=== PATIENT | female | born 1935 | race Caucasian/White ===

== ENCOUNTER 2016-08-28 07:51 | Observation (INO) | payer MEDICARE, OTHER ==
--- NOTE | 2016-08-27 19:08 | HP ---
DATE OF ADMISSION: 08/28/2016 ADMITTING DIAGNOSES: 1. Coronary artery disease, history of positive Lexiscan. 2. Acute myocardial infarction. 3. Right breast cancer for preoperative clearance. 4. Hypertension. 5. Hypothyroidism. 6. Hypercholesterolemia. 7. Osteoarthritis. HISTORY OF PRESENT ILLNESS: The patient is a 80-year-old male who will be admitted to [facility] for cardiac catheterization to be done by Dr. Tye Mendoza secondary Lexiscan showing latera l ischemia. Patient had a full cardiac workup done by him and admitted for further workup. Patient is complaining of right breast pain and biopsy done which shows positive for malignancy. The patie nt was seen by the surgeon for preop workup which showed some coronary artery disease. The patient informed of diagnosis and prognosis. We will follow up. 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 HABITS: Not a smoker, drinker or drug abuser. FAMILY HISTORY: Positive for malignancy, positive for cardiovascular disease, diabetes mellitus and hypertension. PAST MEDICAL HISTORY: The patient has history of diabetes mellitus, hypertension, hyponatremia, hyp ochloremia, osteoarthritis, osteoporosis, hypothyroidism, hypertension, diabetes mellitus with perip heral neuropathy, major depression, vertigo and then severe osteoarthritis of the knees with multipl e injections in the knees and history of right carpal syndrome. History of recurrent urinary tract i nfection with hematuria. Obesity. PAST SURGICAL HISTORY: None. SOCIAL HISTORY: The patient has no kids. MEDICATIONS: Currently the patient is taking. 1. Cozaar 20 mg once a day. 2. Neurontin 100 mg 3 times a day. 3. Januvia 100 mg once a day. 4. Cozaar 100 mg once a day. 5. Cardura 4 mg once a day. 6. Levoxyl 100 mcg once a day p.o. 7. Nitrostat 0.4 mg sublingual. 8. Inderal 10 mg 3 times a day. ALLERGIES: PENICILLIN. REVIEW OF SYSTEMS: GASTROINTESTINAL: No history of upper or lower GI bleeding, but peptic ulcer disease and vomiting. She preferred to use no Plavix or aspirin. RESPIRATORY: No shortness of breath or cough. No pulmonary tuberculosis, hemoptysis. CARDIOVASCULAR: Hypertension, positive cardiac workup. Old EKG done on her shows nonspecific ST-T wave abnormality with left ventricular hypertrophy. No evidence of heart disease in the past. GENITOURINARY: No dysuria, hematuria, groin pain, nephrolithiasis. No retention of urine. Pap sme ar refused by the system administrator secondary to age. Mammogram right ductal carcinoma right breast biop sy done pending surgery. MUSCULOSKELETAL: Advanced osteoporosis and osteoarthritis. He was on vitamin D in the past. Proli a injection every 6 months. No fracture of bones but severe arthritis of the knees. HEMATOLOGY: No leukemia or lymphoma. No anemia. SKIN: No urticaria, dermatitis. NEUROLOGIC: No seizure or convulsion. No TIA or CVA. PHYSICAL EXAMINATION: GENERAL: The patient is awake, alert, looks stated age, not in pain or shortness of breath. VITAL SIGNS: On admission show blood pressure was 130/80, temperature 97.8, pulse 81, and she weigh s 159 pounds. She is 58 inches high. HEAD: Normocephalic, atraumatic. Pupils equal, react to light and accommodation. Sclerae anicteri c. Extraocular movements normal limits. Throat clear. No sign of acute infection seen. Facial sk in and scalp within normal limits. Pale skin. NECK: Supple, trachea central, no thyroid enlargement, no cervical lymphadenopathy. Carotid pulse normal. No jugular venous distention. CHEST: Normal contour with normal inspiration and expiration. LUNGS: Clear to auscultation and percussion. HEART: Regular sinus rhythm with systolic murmur on right side. Mild cardiomegaly. ABDOMEN: Umbilicus central. No organomegaly. No tenderness or rebound tenderness. Bowel sounds p ositive. GENITALIA: External genitalia within normal limits. RECTAL: The patient refused. BREASTS: Normally shaped, right side mass in the right upper quadrant. EXTREMITIES: Upper and lower extremities normally shaped at this moment. No clubbing, no cyanosis or deformity. Good peripheral pulse, no edema. Arthritis in the knees with mild difficulty in walk ing. NEUROLOGICAL: Cranial nerves II through XII and peripheral nerves, sensory and motor grossly within normal limits. Gait normal. Deep tendon reflexes 4+. There is mild hypoesthesia in the legs. IMPRESSION: 1. Coronary artery disease for cardiac catheterization by Dr. Mendoza. 2. Right breast invasive ductal carcinoma pending surgery after cardiac clearance. 3. Diabetes mellitus type 2, controlled. 4. Hypertension. 5. Hyperlipidemia. 6. Osteoarthritis. 7. Hypothyroidism. PLAN: Patient admitted to the hospital, medically cleared for procedure. We will follow up again. PROGNOSIS: Fair to guarded. Dictated By: ZEB SALGUERO/TAHIR Conf#: [id number] DID#: [id number]
[2016-08-28] VITALS (36 sets, daily range): BP systolic 87–161; BP diastolic 40–67; PULSE 64–84; RESP 10–25; Ht 139.7 cm; Wt 71.6 kg
[~2016-08-28] VITALS: Ht 139.7 cm; Wt 71.6 kg
[2016-08-28 09:25] LABS: ADD SCAN DIFF NO
[2016-08-28 09:28] LABS: BASOPHIL # 0.1 10^3/ul (0.0-0.1); BASOPHILS % 0.6 % (0.0-2.0); EOSINOPHILS # 0.2 10^3/ul (0.0-0.5); EOSINOPHILS % 1.5 % (0.0-7.0); HEMATOCRIT 38.4 % (37.0-47.0); HEMOGLOBIN 12.4 g/dl (12.0-16.0); LYMPHOCYTES # 2.2 10^3/ul (0.8-2.9); LYMPHOCYTES % 20.3 % (15.0-51.0); MEAN CORPUSCULAR HEMOGLOBIN 26.6 pg (29.0-33.0); MEAN CORPUSCULAR HGB CONC 32.3 g/dl (32.0-37.0); MEAN CORPUSCULAR VOLUME 82.4 fl (82.0-101.0); MEAN PLATELET VOLUME 11.2 fl (7.4-10.4); MONOCYTE # 0.6 10^3/ul (0.3-0.9); MONOCYTES % 5.2 % (0.0-11.0); NEUTROPHIL # 7.8 10^3/ul (1.6-7.5); NEUTROPHILS % 71.8 % (39.0-77.0); PLATELET COUNT 214 10^3/UL (140-415); RED BLOOD COUNT 4.66 10^6/ul (4.20-5.40); RED CELL DISTRIBUTION WIDTH 15.1 % (11.5-14.5); WHITE BLOOD COUNT 10.8 10^3/ul (4.8-10.8)
[2016-08-28] MEDS ORDERED: LOSA1TAB20 PO (09:34)
[2016-08-28] MEDS ORDERED: SIMV20TA6 PO (09:34)
[2016-08-28] MEDS ORDERED: SITA100T8 PO (09:34)
[2016-08-28] MEDS ORDERED: LEVO100T87 PO (09:34)
[2016-08-28] MEDS ORDERED: DOXA4TAB3 PO (09:34)
[2016-08-28] MEDS ORDERED: GABA300S PO (09:34)
[2016-08-28] MEDS ORDERED: CHOL100062 PO (09:34)
--- NOTE | 2016-08-28 09:39 | RADRPT ---
PROCEDURE: XR Chest. CLINICAL INDICATION: Chest pain , preoperative TECHNIQUE: Single frontal view of the chest was obtained COMPARISON: None FINDINGS: The heart is enlarged. The thoracic aorta is calcified. The lungs are clear. There is no pleural effusion or pneumothorax. RPTAT: AA IMPRESSION: Mild cardiomegaly. Calcified aorta consistent with atherosclerotic disease. .Niall Malcolm MD, MD Date Time Electronically viewed and signed by .Niall Malcolm MD, on 08/28/2016 09:39 .S/
[2016-08-28 09:45] LABS: INR 1.03; PROTIME 13.5 Sec (12.2-14.2); PT RATIO 1.1
[2016-08-28 09:46] LABS: CHOL/HDL RATIO 4.4 RATIO; PARTIAL THROMBOPLASTIN TIME 27.2 Sec (25.0-35.0)
[2016-08-28 09:57] LABS: CALCIUM 9.3 mg/dl (8.4-10.2); CREATININE 1.21 mg/dl (0.44-1.00); POTASSIUM 4.7 mmol/L (3.5-5.1)
[2016-08-28] MEDS ORDERED: MIDAZOLAM 1 MG/ML 2 ML INJ ONE ×2 (13:19→13:22)
[2016-08-28] MEDS ORDERED: LIDOCAINE 1% (MDV) 20 ML INJ ONE (13:19)
[2016-08-28] MEDS ORDERED: IODIXANOL LOCM 100 ML BTL ONE (13:19)
[2016-08-28] MEDS ORDERED: FENTAnyl 50 MCG/ML VIAL ONE ×2 (13:19→13:22)
[2016-08-28] MEDS ORDERED: HEPARIN 1000 UNITS/ML 10 ML INJ ONE (13:29)
[2016-08-28] MEDS ORDERED: VERAPAMIL 5 MG INJ ONE (13:29)
[2016-08-28] MEDS ORDERED: NITROGLYCERIN (IC) 100 MCG/ML INJ ONE ×2 (13:29→15:46)
--- NOTE | 2016-08-28 14:28 | RADRPT ---
Vent Rate: 74 bpm RR Interval: 0 msec [place] Interval: 172 msec QRS Duration: 86 msec QT Interval: 410 msec QTC Interval: 455 msec P-R-T [place]: 34 - -16 - 113 degrees Sinus rhythm with premature atrial complexes with aberrant conduction Voltage criteria for left ventricular hypertrophy T wave abnormality, consider lateral ischemia Abnormal ECG Electronically Signed By: Vic Borges [id number]
[2016-08-28] MEDS ORDERED: ASPIRIN 325 MG TAB ONE (16:13)
[2016-08-28] MEDS ORDERED: CLOPIDOGREL 300 MG TAB ONE (16:14)
[2016-08-28] MEDS ORDERED: SOD CHLORIDE 0.9% 1,000 ML IV SCH (16:16)
[2016-08-28] MEDS ORDERED: ONDANSETRON 4 MG INJ IV PRN (16:30)
[2016-08-28] MEDS ORDERED: ZOLPIDEM 5 MG TAB PO PRN (16:30)
[2016-08-28] MEDS ORDERED: AL HYDROX/MG HYDROX/SIMETH 30 ML CUP PO PRN (16:30)
[2016-08-28] MEDS ORDERED: ACETAMINOPHEN 325 MG TAB PO PRN (16:30)
[2016-08-28] MEDS ORDERED: OXYCODONE/ACETAMINOPHEN (5/325) TAB PO PRN (16:30)
--- NOTE | 2016-08-28 19:19 | RADRPT ---
Vent Rate: 66 bpm RR Interval: 0 msec [place] Interval: 180 msec QRS Duration: 96 msec QT Interval: 464 msec QTC Interval: 486 msec P-R-T [place]: 45 - -43 - 99 degrees Normal sinus rhythm Left axis deviation Left ventricular hypertrophy with repolarization abnormality Abnormal ECG Electronically Signed By: Vic Borges [id number]
[2016-08-28] MEDS ORDERED: GLUCAGON 1 MG INJ IM PRN (21:30)
[2016-08-28] MEDS ORDERED: GLUCOSE GEL 15 GRAM TUBE BUCCAL PRN (21:30)
[2016-08-28] MEDS ORDERED: [UNRECOGNIZED DRUG - REMARK] XX ONE (21:30)
[2016-08-28] MEDS ORDERED: DEXTROSE 50% 50 ML SYRINGE IV PRN ×2 (21:30)
[2016-08-28] MEDS ORDERED: GLUCOSE GEL 15 GRAM TUBE PO PRN ×2 (21:30)
[2016-08-28] MEDS ORDERED: Discontinue Glyburide, Glipizide, and/or Glimepiride prior to starting Insulin XX ONE (21:30)
[2016-08-28] MEDS ORDERED: ATORVASTATIN 10 MG TAB PO SCH (22:15)
[2016-08-28] MEDS ORDERED: DOXAZOSIN 4 MG TAB PO SCH (22:30)
[2016-08-28] MEDS ORDERED: GABAPENTIN (50 MG/ML PO SYG) PO SCH (23:00)
[2016-08-29] VITALS (10 sets, daily range): BP systolic 114–143; BP diastolic 56–66; PULSE 71–108; RESP 18–20
[2016-08-29] MEDS ORDERED: ACCU-CHEK XX SCH (02:00)
[2016-08-29] MEDS ORDERED: LEVOTHYROXINE 100 MCG TAB PO SCH (06:00)
[2016-08-29 08:03] LABS: ADD SCAN DIFF NO
[2016-08-29 08:10] LABS: BASOPHIL # 0.1 10^3/ul (0.0-0.1); BASOPHILS % 0.5 % (0.0-2.0); EOSINOPHILS # 0.1 10^3/ul (0.0-0.5); EOSINOPHILS % 0.6 % (0.0-7.0); HEMATOCRIT 34.8 % (37.0-47.0); HEMOGLOBIN 11.1 g/dl (12.0-16.0); LYMPHOCYTES # 1.7 10^3/ul (0.8-2.9); LYMPHOCYTES % 13.4 % (15.0-51.0); MEAN CORPUSCULAR HEMOGLOBIN 26.4 pg (29.0-33.0); MEAN CORPUSCULAR HGB CONC 31.9 g/dl (32.0-37.0); MEAN CORPUSCULAR VOLUME 82.9 fl (82.0-101.0); MEAN PLATELET VOLUME 10.6 fl (7.4-10.4); MONOCYTE # 0.7 10^3/ul (0.3-0.9); MONOCYTES % 5.7 % (0.0-11.0); NEUTROPHIL # 9.9 10^3/ul (1.6-7.5); NEUTROPHILS % 79.3 % (39.0-77.0); PLATELET COUNT 209 10^3/UL (140-415); RED CELL DISTRIBUTION WIDTH 15.2 % (11.5-14.5); WHITE BLOOD COUNT 12.5 10^3/ul (4.8-10.8)
[2016-08-29 08:43] LABS: CALCIUM 9.1 mg/dl (8.4-10.2); CREATININE 1.22 mg/dl (0.44-1.00); POTASSIUM 4.4 mmol/L (3.5-5.1)
[2016-08-29] MEDS: INSULIN ASPART [NOVOLOG] 3 ML PEN SC SCH ×3 (08:47→18:05)
[2016-08-29] MEDS ORDERED: HYDROCHLOROTHIAZIDE 25 MG TAB PO SCH (09:00)
[2016-08-29] MEDS ORDERED: CLOPIDOGREL 75 MG TAB PO SCH (09:00)
[2016-08-29] MEDS ORDERED: LOSARTAN 50 MG TAB PO SCH (09:00)
[2016-08-29] MEDS ORDERED: ASPIRIN (EC) 325 MG TAB PO SCH (09:00)
[2016-08-29] MEDS ORDERED: CHOLECALCIFEROL 1,000 UNIT TAB PO SCH (09:00)
[2016-08-29] MEDS ORDERED: LINAGLIPTIN 5 MG TABLET PO SCH (09:00)
--- NOTE | 2016-08-29 15:18 | CONS ---
Date/Time of Note Date/Time of Note DATE: 08/29/16 TIME: 15:15 Assessment/Plan Assessment/Plan Additional Assessment/Plan Coronary artery disease, hs/p PTCA with stenting. Hypertension. Hypothyroidism. Dyslipidemia Diabetes Osteoarthritis. Breast cancer Post Stenting hemodynamically stable Started on Metoprolol Continue Losartan Continue ASA and Plavix Continue Lipitor continue Insulin Home Tomorrow if not hypotensive on metoprolol Consultation Date/Type/Reason Admit Date/Time Aug 28, 2016 at 20:00 Social History Smoking Status: Former smoker Exam/Review of Systems Vital Signs Vitals Vital Signs Date Time Temp Pulse Resp B/P Pulse Ox O2 Delivery O2 Flow Rate FiO2 08/29/16 12:21 98.0 77 18 114/56 98 08/28/16 19:39 Room Air Exam Constitutional: alert, oriented Psych: no complaints Head: atraumatic, normocephalic Neck: non-tender, supple Respiratory: clear to auscultation Cardiovascular: regular rate and rhythm Gastrointestinal: nl liver, spleen, non-tender, soft Extremities: normal pulses Results Result Diagram: 08/29/16 0730 08/29/16 0730 Results 24 hrs Laboratory Tests Test 08/28/16 21:23 08/29/16 07:30 08/29/16 08:14 08/29/16 12:22 Bedside Glucose 111 181 133 White Blood Count 12.5 H Red Blood Count 4.20 Hemoglobin 11.1 L Hematocrit 34.8 L Mean Corpuscular Volume 82.9 Mean Corpuscular Hemoglobin 26.4 L Mean Corpuscular Hemoglobin Concent 31.9 L Red Cell Distribution Width 15.2 H Platelet Count 209 Mean Platelet Volume 10.6 H Neutrophils % 79.3 H Lymphocytes % 13.4 L Monocytes % 5.7 Eosinophils % 0.6 Basophils % 0.5 Nucleated Red Blood Cells % 0.0 Neutrophils # 9.9 H Lymphocytes # 1.7 Monocytes # 0.7 Eosinophils # 0.1 Basophils # 0.1 Nucleated Red Blood Cells # 0.0 Sodium Level 136 Potassium Level 4.4 Chloride Level 99 Carbon Dioxide Level 31 Anion Gap 10 Blood Urea Nitrogen 32 H Creatinine 1.22 H Glucose Level 126 Calcium Level 9.1 Triglycerides Level 207 H Cholesterol Level 165 LDL Cholesterol, Calculated 91 HDL Cholesterol 33 Cholesterol/HDL Ratio 5.0 Medications Medications Current Medications Aspirin (Ecotrin) 325 mg DAILY PO Last administered on 08/29/16 08:47; Admin Dose 325 MG; Start 08/29/16 at 09:00 Clopidogrel Bisulfate (plaVIX) 75 mg DAILY PO Last administered on 08/29/16 08 :47; Admin Dose 75 MG; Start 08/29/16 at 09:00 Acetaminophen (Tylenol Tab) 650 mg Q4H PRN PO NON-CARDIAC PAIN LEVEL 1-3; Start 08/28/16 at 16:30 Oxycodone/ Acetaminophen (Percocet (5/ 325)) 1 tab Q4H PRN PO REPORTED NON- CARDIAC PAIN 4-7; Start 08/28/16 at 16:30 Al Hydrox/Mg Hydrox/Simethicone (Mag-Al Plus) 30 ml Q4H PRN PO GASTROINTESTINAL UPSET; Start 08/28/16 at 16:30 Ondansetron HCl (Zofran Inj) 4 mg Q4H PRN IV NAUSEA AND/OR VOMITING; Start at 16:30 Diagnostic Test (Pha) (Accu-Chek) 1 ea 02 XX ; Start 08/29/16 at 02:00 Miscellaneous Information 1 ea NOTE XX ; Start 08/28/16 at 21:30 Glucose (Glutose) 15 gm Q15M PRN PO DECREASED GLUCOSE; Start 08/28/16 at 21:30 Glucose (Glutose) 22.5 gm Q15M PRN PO DECREASED GLUCOSE; Start 08/28/16 at 21: 30 Dextrose (D50w Syringe) 25 ml Q15M PRN IV DECREASED GLUCOSE; Start 08/28/16 at 21:30 Dextrose (D50w Syringe) 50 ml Q15M PRN IV DECREASED GLUCOSE; Start 08/28/16 at 21:30 Glucagon (Glucagen) 1 mg Q15M PRN IM DECREASED GLUCOSE; Start 08/28/16 at 21:30 Glucose (Glutose) 15 gm Q15M PRN BUCCAL DECREASED GLUCOSE; Start 08/28/16 at 21 :30 Cholecalciferol (Vitamin D) 3,000 unit DAILY PO Last administered on 08/29/16 08:48; Admin Dose 3,000 UNIT; Start 08/29/16 at 09:00 Doxazosin Mesylate (Cardura) 4 mg HS PO ; Start 08/28/16 at 22:30 Levothyroxine Sodium (Synthroid) 100 mcg DAILY@06 PO Last administered on 05:48; Admin Dose 100 MCG; Start 08/29/16 at 06:00 Atorvastatin Calcium (Lipitor) 10 mg DAILY@21 PO ; Start 08/28/16 at 22:15 Linagliptin (Tradjenta) 5 mg DAILY PO Last administered on 08/29/16 08:48; Admin Dose 5 MG; Start 08/29/16 at 09:00 Losartan Potassium (Cozaar) 100 mg DAILY PO Last administered on 08/29/16 08: 49; Admin Dose 100 MG; Start 08/29/16 at 09:00 Hydrochlorothiazide (Hydrochlorothiazide) 25 mg DAILY PO Last administered on 08:48; Admin Dose 25 MG; Start 08/29/16 at 09:00 Gabapentin (Neurontin Liquid) 300 mg HS PO ; Start 08/29/16 at 21:00 SILAS ANTOIEN M.D. Aug 29, 2016 15:18
[2016-08-29] MEDS ORDERED: CLOP75TA27 PO ×2 (18:40→18:41)
--- NOTE | 2016-08-29 19:13 | DS ---
DATE OF ADMISSION: 08/28/2016 DATE OF DISCHARGE: 08/29/2016 ADMITTING DIAGNOSES: 1. Coronary artery disease with positive cardiac workup with ischemic cardiomyopathy. 2. Diabetes mellitus type 2. 3. Invasive ductal carcinoma of the right breast, for surgical management in a few weeks, for cardi ac clearance. 4. Anemia. 5. Hypertension. 6. Hypothyroidism. 7. Hypercholesterolemia. DISCHARGE DIAGNOSES: 1. Coronary artery disease with positive cardiac workup with ischemic cardiomyopathy. 2. Diabetes mellitus type 2. 3. Invasive ductal carcinoma of the right breast, for surgical management in a few weeks, for cardi ac clearance. 4. Anemia. 5. Hypertension. 6. Hypothyroidism. 7. Hypercholesterolemia. PRINCIPAL PROCEDURE: Cardiac catheterization with stent placement in the left coronary artery with right coronary was blocked completely, circumflex intact, done by Dr. Mendoza, see the operative rep ort. SUMMARY: The patient is a 80-year-old female admitted for cardiac catheterization after Lexiscan allium study done in Dr. Mendoza office was procedure pre-workup. The patient's angiogram positive for left coronary artery stenotic with complete occlusion of right coronary artery. Patient ____ an d EKG was unremarkable. The patient tolerated the cardiac catheterization and then with no chest pa in, her EKG shows normal sinus rhythm with left axis deviation, and left ventricular hypertrophy. The patient had medications, currently on: 1. Neurontin 300 mg 3 times a day. 2. Aspirin 325 mg. 3. Plavix 75 mg once a day. 4. Vitamin D 3000 units. 5. Tradjenta 5 mg daily. 6. Cozaar 100 mg daily. 7. Hydrochlorothiazide 25 mg daily. 8. NovoLog insulin b.i.d. 9. Levoxyl 100 mcg once a day. 10. Accu-Chek twice a day. 11. Add Cardura 4 mg at bedtime. 12. And Lipitor 10 mg once a day. Her WBC on admission shows WBC 10.8, hemoglobin 12.4, platelet count 214, neutrophils 7.8 unremarkab le. Today, chemistry showed sodium 136, potassium 4.4, chloride 99, carbon dioxide 31, BUN 32, was 28 yesterday, and creatinine 1.2, stable. ____ was ____ and went to 0.7. Glucose was normal 111, a nd today is 181, and went down to 133. Chest x-ray showed cardiomegaly and no acute changes. PHYSICAL EXAMINATION: GENERAL: The patient is awake, calm, looks stated age. VITAL SIGNS: On admission shows pulse 76, respirations 20. Blood pressure 114/56, O2 saturation 98 % on room air, temperature 98.0. HEENT: Head normocephalic, atraumatic. Pupils equal, react to light and accommodation. Sclerae an icteric. Extraocular movements normal limits. Throat clear. No sign of acute infection seen. Fac ial skin and scalp within normal limits. NECK: Supple. Trachea central. No thyroid enlargement, no cervical lymphadenopathy. Carotid puls e normal. No jugular venous distention. CHEST: Normal contour. Normal inspiration and expiration. Lungs clear to auscultation and percuss ion. HEART: Regular sinus rhythm. No rub or murmur. PMI localized in midclavicular line, fourth interc ostal space. ABDOMEN: Umbilicus central. No organomegaly. No tenderness or rebound tenderness. Bowel sounds p ositive. GENITOURINARY: External genitalia within normal limit. BREASTS: Examination of right breast with right upper quadrant 1 inch mass. It is soft, nontender, status post biopsy a month ago. UPPER AND LOWER EXTREMITIES: No Upper and lower extremities normally shaped at this moment. No clu bbing, cyanosis, or deformity. Osteoarthritis of the knees with difficulty walking with no weakness . NEUROLOGIC: Cranial nerves II through XII and peripheral nerves, sensory and motor grossly within n ormal limits. Gait normal. Deep tendon reflexes 4+. PLAN: The patient is going home. Will continue her medications of: 1. Neurontin 300 mg at bedtime. 2. Aspirin 325 mg once a day. 3. Plavix 75 mg once a day. 4. Vitamin D 3000 units daily. 5. Tradjenta 5 mg once a day. 6. Cozaar 100 mg daily. 7. Hydrochlorothiazide 25 mg once a day. 8. Insulin sliding scale twice a day. 9. Levoxyl 100 mcg once a day. 10. Cardura 4 mg at bedtime. 11. Lipitor 10 mg once a day. 12. Tylenol 650 q.4 hours p.r.n. mild pain. SKIN: Intact. PROGNOSIS: Fair. CODE STATUS: FULL CODE. Will follow up. Discussed her case with Dr. Mendoza and with ____, and [facility]. CONDITION UPON DISCHARGE: Improved. Dictated By: ZBE SALGUERO/TAHIR Conf#: [id number] DID#: [id number]
--- NOTE | 2016-08-29 20:41 | PDOCDIS ---
Discharge Instructions CONDITION Patient Condition: Fair HOME CARE INSTRUCTIONS: Diet Instructions: Low Fat /Cholesterol ACTIVITY: Activity Restrictions: No Restrictions ZEB WALKER MD Aug 29, 2016 15:57
[2016-08-29] MEDS ORDERED: GABAPENTIN (50 MG/ML PO SYG) PO SCH (21:00)
--- NOTE | 2016-08-30 19:07 | CARRPT ---
DATE OF PROCEDURE: 08/28/2016 TYPE OF PROCEDURE: 1. Left heart catheterization. 2. Coronary angiography. 3. Measurement of left ventricular end diastolic pressure. 4. Percutaneous transluminal coronary angioplasty with placement of bare metal stent x1 to proximal LAD, 3.0 x 20 mm. 5. 90 minutes of moderate conscious sedation. TYPE OF ANESTHESIA: Conscious and local. INDICATION: Abnormal cardiac stress test in a preoperative patient with anterior ischemia. BRIEF HISTORY: Ms. Rdz is a 80-year-old female with history of hypertension and dyslipidemia wh o initially presented with complaints of shortness of breath preoperatively. The patient subsequent ly underwent a cardiac stress test revealing anterior ischemia. Given these findings, the patient h as been referred for and presents today in order to undergo left heart catheterization to assess for the possibility of significant obstructive coronary artery disease lending to his symptoms of chest pain and subsequent positive stress test findings. PROCEDURE: After informed consent was obtained, the patient was brought to the [facility] cardiac catheterization lab where her right radial area was prepped and draped in sterile f ashion. Lidocaine 2% infiltrated right radial area in order to achieve adequate anesthesia. With m odified Seldinger technique, the radial artery was cannulated and a 6-Cypriot arterial sheath was mali sky. A 6-Cypriot JL3.5 catheter was used to cannulate the left main coronary ostium. With contrast injection, multiple views of the left coronary system was obtained. At JL3.5 mm guidewire and a JR4 was used to cannulate the right coronary arterial ostium. With contrast injection, a single view o f the occluded right coronary artery was obtained. JR4 was removed over a guidewire after being use d to cross the aortic valve to assess left ventricular end diastolic pressure, pulled back across th e aortic valve to assess for gradient, ____ and removed. Subsequently, at this time, given the find ings of significant obstructive lesion in the patient's proximal LAD, we moved directly into an inte rventional procedure. The patient was given additional total of 5000 units of heparin during the pr ocedure in order to achieve adequate ____ in addition to 5000 units received during her radial cockt ail. I initially attempted to cannulate the left main coronary ostium with an XB LAD, and this prov ed unsuccessful. Then we were able to cannulate it with a JL3.5 guide. Subsequently, a 0.014 Ashwin ce Middleweight guidewire was passed distal to the lesion. The lesion was pretreated with balloon a ngioplasty with a 2.5 x 12 mm balloon up to 14 atmospheres x2 and removed, and subsequently the lesi on was stented with a 3.0 x 20 mm drug-eluting stent deployed at 14 atmospheres and post-dilated wit h the stent delivery system up to 16 atmospheres x2. The stent delivery system was removed. Follow up angiogram was obtained revealing excellent result with deployment of this stent with LYSSA 3 flow throughout the vessel and no signs of complication including perforation or dissection. Subsequentl y, at this time, the interventional guide and guidewires were removed. The patient's sheath was rem franky. TR band was applied. There were no noted complications. FINDINGS: Coronary angiography: Left main proximally is a 3.5 mm vessel and has a distal napkin ring distal s tenosis of approximately 40%. The LAD proximally is a 3 mm vessel and has a 90% proximal stenosis. The remainder of the LAD is free of significant focal stenosis. Mid branching diagonal sub 2 mm ve ssel with an ostial 50% stenosis. The patient's circumflex proximally is a 3.5 mm vessel, and in th e mid distal portions of the circumflex has an eccentric-appearing 50% stenosis. There is additiona lly a mid branching obtuse marginal 2 mm vessel with an ostial 30% to 40% stenosis. The very distal branching obtuse marginal 3 mm, no significant focal stenoses. The circumflex is a dominant vessel and therefore gives off a left-sided PDA, 2 mm with no significant focal stenoses. The right coron donte artery proximally is a 2.5 mm vessel and is 100% occluded shortly after its takeoff but appears to be from some right to right collaterals be a nondominant small vessel. LVEDP of 29. PTCA and stent placement: Prior to PTCA and stent placement, the patient had a 90% proximal stenosi s. Post-PTCA and stent placement, the patient had no residual stenosis in the proximal LAD, LYSSA 3 flow throughout the vessel, mild step down at the distal end of the stent. No signs of complication including perforation or dissection. TOTAL FLUOROSCOPY TIME: 39 minutes. TOTAL CONTRAST: 300 mL. IMPRESSION: 1. Two-vessel obstructive coronary artery disease involving 100% occlusion of the patient's what ap pears to be a small nondominant right coronary artery in its mid portion with some right to left col lateral flow and a high grade stenosis of proximal LAD, status post successful percutaneous translum inal coronary angioplasty and stent placement x1 with bare metal stent. 2. Elevated left heart filling pressures. 3. No significant aortic stenosis by gradient. 4. 1+ mitral regurgitation. RECOMMENDATIONS: In light of procedural findings, at this time would 1. Maintain the patient on Plavix 75 mg 1 tab p.o. daily indefinitely. 2. Aspirin 325, one tab p.o. daily indefinitely at this time. 3. Maximize medical management. 4. Aggressive risk factor reduction. 5. The patient will be admitted to the ICU for post-intervention observation and continued manageme nt of symptoms with probable discharge tomorrow. Dictated By: BELLA ROBLES/TAHIR Conf#: [id number] DID#: [id number] CC: ZEB WALKER MD;*EndCC*
--- NOTE | 2016-09-01 13:55 | RADRPT ---
Vent Rate: 97 bpm RR Interval: 0 msec [place] Interval: 196 msec QRS Duration: 90 msec QT Interval: 344 msec QTC Interval: 436 msec P-R-T [place]: 47 - -33 - 95 degrees Sinus rhythm with occasional premature ventricular complexes Left axis deviation Voltage criteria for left ventricular hypertrophy T wave abnormality, consider lateral ischemia Abnormal ECG Electronically Signed By: Vic Borges [id number]
== END 2016-08-29 19:15 | disposition home or self-care (01) ==
LOC: SDS 07:51 → EDSEX 07:51 → INTOOBSV 20:00 → MS4 20:00 → SDS 20:00
PROVIDERS: ADMIT Internal Medicine; ATTEND Family Medicine
DX: I25.10 Atherosclerotic heart disease of native coronary artery without angina pectoris (principal); I25.5 Ischemic cardiomyopathy; E11.42 Type 2 diabetes mellitus with diabetic polyneuropathy; C50.911 Malignant neoplasm of unspecified site of right female breast; D64.9 Anemia, unspecified; I10 Essential (primary) hypertension; E03.9 Hypothyroidism, unspecified; E78.00 Pure hypercholesterolemia, unspecified; M17.0 Bilateral primary osteoarthritis of knee; M81.0 Age-related osteoporosis without current pathological fracture; F32.9 Major depressive disorder, single episode, unspecified; Z87.440 Personal history of urinary (tract) infections; E66.9 Obesity, unspecified; Z68.36 Body mass index [BMI] 36.0-36.9, adult
CPT/HCPCS: 71010; 80048; 80061; 82962; 85025; 85610; 85730; 92921; 93005; 93458; 96372; C1725; C1769; C1876; C1887; C1894; C9600; G0378; J1644; J1815; J2250; J3010; Q9967